=== PATIENT | male | born 1970 | race Caucasian/White ===

== ENCOUNTER 2025-04-22 09:44 | Emergency (ER) | payer OTHER, SELFPAY ==
[2025-04-22 09:47] VITALS: BP 158/86; PULSE 87; RESP 20; TEMP 36.3; O2SAT 98; BMI 27.2
--- NOTE | 2025-04-22 11:01 | ED.ALCOHOL ---
HPI - Alcohol General Chief Complaint: ETOH/Substance Use Stated Complaint: alcoholism Time Seen by Provider: 04/22/25 10:23 Source: patient, RN notes reviewed and old records reviewed Mode of arrival: ambulatory Limitations: no limitations History of Present Illness ED Provider: RICHARD Garcia HPI narrative: 54-year-old male with medical history of alcohol use disorder presents to the ED seeking ETOH detox. Patient states he has a long history of alcohol used that started when he was 19 years old, and has been consistently drinking daily since. Patient states he has had minimal periods of time of sobriety. Patient states he drinks approximately a handle of vodka weekly, however over the last 2 weeks has been drinking a handle of vodka every 3-4 days and the loss of his job has been emotionally taxing. He states he recently quit his job and finds himself with more free time to drink alcohol and is becoming very worried about the extent of his alcoholism. He reports drinkig 2 shots of vodka prior to arrival. Patient denies history of alcohol withdrawal or alcohol seizure, chest pain, SOB, abdominal pain, nausea, vomiting, headaches, visual changes, urinary symptoms Related Data Allergies Allergy/AdvReac Type Severity Reaction Status Date / Time No Known Allergies Allergy Verified 04/22/25 09:48 [facility] Social History Social History Smoked in Last 30 Days: No Use of substances other than those prescribed or required for medical reasons: No Advance Directives: No Advance Directives Information Provided: Yes Physical Exam ED Vital Signs: Vital Signs - 24 hr 04/22/25 09:47 Temperature 97.3 F Pulse Rate 87 Respiratory Rate 20 Blood Pressure 158/86 H Pulse Oximetry 98 Oxygen Delivery Method Room Air BMI result Body Mass Index 27.2 GENERAL APPEARANCE: ?AxOx4, generally well-appearing, no acute distress. HEENT: ?NC, AT. MMM. EOMI, clear conjunctiva, oropharynx clear. NECK: ?Supple without lymphadenopathy.? No stiffness or restricted ROM. HEART:? Normal rate and regular rhythm, normal S1/S1, no m/r/g LUNGS:? CTAB, moving air well. No crackles or wheezes are heard. ABDOMEN: ?Soft, nontender, nondistended with good bowel sounds heard. BACK: No CVAT, no obvious deformity. EXTREMITIES: ?Without cyanosis, clubbing or edema. NEUROLOGICAL: ?Grossly nonfocal. Alert and oriented, moving all 4 extremities. Observed to ambulate with normal gait. Skin: ?Warm and dry without any rash. Medical Decision Making Medical Decision Making MDM Narrative: Upon going back into the patients room he asked if [facility] [place] formal [place]. I told him to let us evaluate him as I wanted to obtain official CIWA score on him, lab work, and meeting with recovery team. He stated if the hospital did not have a formal detox he did not want to stay and wanted to self present at [facility] instead. I asked the patient to give me a moment so I could consult with a resource recovery specialist who could go over options available. A few moments later, nursing had asked if I discharged the patient as he had eloped from the department. Discharge Plan Discharge Clinical Impression: General medical exam Patient Disposition: Elopement Discharge Date/Time: 04/22/25 12:27 Print Language: Estonian
--- NOTE | 2025-04-22 12:01 | PC.NURSE ---
Pt noted by charger tester to be exiting department and leaving out the emergency department doors. Pt stopped and spoke with this RN, there is no detox program, they can't help me so I'm leaving. Anish PADILLA made aware. Pt A&Ox3, ambulatory with a steady gait.
--- OUTSIDE RECORDS SUMMARY | 2025-04-22 12:20 | XMS_ITS | Clinical Summary ---
Author Organization [facility] Address [address] [place] [address] Phone Care Team Providers Care Audiology Assistant Name Role Phone Jong Zhang MD Primary Care Provider [phone] Allergies No known active allergies Medications No known medications Active Problems No known active problems Surgical History Surgery Date Site/Laterality Comments NEPHRECTOMY PROCEDURE:NEPHRECTOMY Medical History Medical History Date Comments Alcohol abuse DX:Alcohol abuse Personal history of kidney cancer DX:Personal history of kidney cancer Family History Medical History Relation Name Comments Alcohol abuse Father No Known Problems Mother Relation Name Status Comments Father Mother Social History Tobacco Use Types Packs/Day Years Used Date Smoking Tobacco: Never Smokeless Tobacco: Never Alcohol Use Standard Drinks/Week Comments Yes 0 (1 standard drink = 0.6 oz pur e alcohol) Sex and Gender Information Value Date Recorded Sex Assigned at Not on file Legal Sex Male 1:10 PM EST Gender Identity Not on file Sexual Orientation Not on file Last Filed Vital Signs Vital Sign Reading Time Taken Comments Blood Pressure 113/73 12/09/2024 8:23 PM EDT Pulse 92 12/09/2024 8:23 PM EDT Temperature 36.8 C (98.2 F) 12/09/2024 8:23 PM EDT Respiratory Rate 20 12/09/2024 8:23 PM EDT Oxygen Saturation 93% 12/09/2024 8:23 PM EDT Inhaled Oxygen Concentration - - Weight 71.2 kg (157 lb) 12/09/2024 5:31 PM EDT Height 172.7 cm (5' 8 ) 12/09/2024 5:31 PM EDT Body Mass Index 23.87 12/09/2024 5:31 PM EDT Plan of Treatment Health Maintenance Due Date Last Done Comments Colorectal Cancer Screening: Colonoscopy 1968 Hepatitis A Vaccines (1 of 2 - Risk 2-dose series) 09/15/1987 Hepatitis B Vaccines (1 of 3 - 19+ 3-dose series) 09/15/1987 Pneumococcal Vaccine: 50+ Ye ars (1 of 2 - PCV) 09/15/1987 Zoster Vaccines (1 of 2) 2018 Cholesterol Screening (Lipid Panel) 03/21/2022 HIV Screening 03/21/2022 Hepatitis C Screening 03/21/2022 Social Influencers of Health Screening 03/21/2022 Depression Screening 04/23/2024 COVID-19 Vaccine (1 - 2024-2 6 season) 2024 Influenza Vaccine (#1) 2024 DTaP,Tdap,and Td Vaccines (2 - Td or Tdap) 06/29/2029 06/30/2019 RSV Immunization Adult Patie nts (1 - 1-dose 75+ series) 09/15/2043 HIB Vaccines Aged Out No longer eligi ble based on patient's age to complete this topic HPV Vaccines Aged Out No longer eligi ble based on patient's age to complete this topic IPV Vaccines Aged Out No longer eligi ble based on patient's age to complete this topic MMR Vaccines Aged Out No longer eligi ble based on patient's age to complete this topic Meningococcal ACWY Vaccine Aged Out N o longer eligible based on patient's age to complete this topic Meningococcal B Vaccine Aged Out No l onger eligible based on patient's age to complete this topic RSV Immunization Patients Un harvinder 20 months Aged Out No longer eligible b ased on patient's age to complete this topic Varicella Vaccines Aged Out No longer eligible based on patient's age to complete this topic Insurance [place] - [place] [facility] [address] [place] [address] Care Teams Audiology Assistant Relationship Specialty Start Date End Date Jong Zhang MD [address] [facility] [facility] [address] [place], [place] PCP - General Internal Medicine 03/28/20
--- OUTSIDE RECORDS SUMMARY | 2025-04-22 12:20 | XMS_ITS ---
Author Name [facility] Organization Unknown Results Test Name/Text Value Interpretation Date Range Source Lipase SerPl-cCnc 47.0 unit/L 12/09/2024 11 - 82 [facility] ALT SerPl-cCnc 26.0 unit/L 12/09/2024 7 - 52 [facility] Albumin SerPl-mCnc 4.7 g/dL 12/09/2024 3.5 - 5 [facility] Bilirub SerPl-mCnc 0.6 mg/dL 12/09/2024 0.3 - 1 [facility] BUN SerPl-mCnc 13.0 mg/dL 12/09/2024 9 - 20 [facility] Glucose SerPl-mCnc 121.0 mg/dL 12/09/2024 70 - 199 [facility] CO2 SerPl-sCnc 25.0 mmol/L 12/09/2024 24 - 32 [facility] AST SerPl-cCnc 23.0 unit/L 12/09/2024 5 - 40 [facility] ALP SerPl-cCnc 71.0 unit/L 12/09/2024 34 - 104 [facility] Prot SerPl-mCnc 7.3 g/dL 12/09/2024 6.4 - 8.5 [facility] Chloride SerPl-sCnc 102.0 mmol/L 12/09/2024 98 - 1 07 [facility] Calcium SerPl-mCnc 9.1 mg/dL 12/09/2024 8.4 - 10.2 [facility] BUN/Creat SerPl 12.3 12/09/2024 12 - 20 [facility] eGFRcr SerPlBld CKD-EPI 2020 82.0 mL/min/1.73m2 12/09/2024 - [facility] Potassium SerPl-sCnc 3.9 mmol/L 12/09/2024 3.5 - 5 [address]1 [facility] Creat SerPl-mCnc 1.06 mg/dL 12/09/2024 0.7 - 1.3 C [facility] Sodium SerPl-sCnc 138.0 mmol/L 12/09/2024 135 - 14 5 [facility] Anion Gap SerPl Calc-sCnc 11.0 12/09/2024 5 - 14 [facility] Magnesium SerPl-mCnc 2.1 mg/dL 12/09/2024 1.7 - 2. 8 [facility] Ethanol SerPl-mCnc 326.0 mg/dL Above high normal 12/09/2024 0 - 10 [facility] RBC # Bld Auto 5.16 M/mcL 12/09/2024 4.7 - 6 [facility] MCH RBC Qn Auto 32.0 pcg 12/09/2024 25 - 33 [facility] RBC Auto 89.9 FL 12/09/2024 78 - 100 [facility] Monocytes NFr Bld Auto 5.6 % 12/09/2024 2 - 12 [facility] Basophils # Bld Auto 0.19 K/mcL 12/09/2024 0 - 0.2 [facility] Lymphocytes NFr Bld Auto 14.9 % Below low normal 12/09/2024 20 - 48 [facility] MCHC RBC Auto-EntMCnc 35.6 g/dL 12/09/2024 32 - 36 [facility] Hct VFr Bld Auto 46.4 % 12/09/2024 40 - 54 [facility] Eosinophil NFr Bld Auto 5.5 % 12/09/2024 0 - 6 [facility] WBC # Bld Auto 12.1 K/mcL Above high normal 12/09/2024 4 - [address] [facility] Eosinophil # Bld Auto 0.66 K/mcL Above high normal 0 - 0.5 [facility] Hgb Bld-mCnc 16.5 g/dL 12/09/2024 13.5 - 18 [facility] Lymphocytes # Bld Auto 1.8 K/mcL 12/09/2024 1 - 3.2 [facility] Monocytes # Bld Auto 0.67 K/mcL 12/09/2024 0 - 0.8 [facility] Basophils NFr Bld Auto 1.6 % 12/09/2024 0 - 2 [facility] Neutrophils NFr Bld Auto 71.0 % 12/09/2024 44 - 74 [facility] Platelet # Bld Auto 355.0 K/mcL 12/09/2024 150 - 4 50 [facility] PMV Bld Auto 8.7 FL 12/09/2024 7.4 - 11.4 [facility] Neutrophils # Bld Auto 8.56 K/mcL Above high normal 12/09/2024 1.8 - 7.8 [facility] RDW RBC Auto 14.4 % 12/09/2024 12.1 - 17.7 [facility] History of Medication Use Medication Directions Dispensed Refills Start Date End Date Stat us LORazepam (ATIVAN) tablet 2 mg [Order 1 Start] Name: LORazepam (ATIVAN) tablet 2 mg Signed Summary: 2 mg, oral, Every 1 hour PRN, CIWA-Ar 10-18, Starting on Sun12/09/24 at 1747, Re-assess CIWA-Ar in 1 hour Hold dose and notify provider for BP LESS than 90/60, RR LESS than 10 per minute, marked somnolence, pooling of secretions, 12/09/2024 active thiamine (VITAMIN B-1) tablet 100 mg 100 mg, oral, Daily, First dose on Sun12/09/24 at 1749 12/09/2024 active No known medications No known medications active Encounters Encounter Type Encounter Reason Primary Diagnosis Location Date Emergency CRISIS Alcohol Problem [facility] Care Team Organization Name Specialty Phone Email Start Date End Da te [facility] Jong Zhang MD Primary Care 03/11/2025 [facility] Jong Zhang MD Primary Care 12/09/2024
--- OUTSIDE RECORDS SUMMARY | 2025-04-22 12:20 | XMS_ITS | Clinical Summary ---
Author Organization [facility] Prior to 09[facility]20[facility] [place] [id number] Care Team Providers Care Real Estate Administrative Assistant Name Role Phone Jong Zhang MD Primary Care Provider [phone] Allergies No known active allergies Medications Medication Sig Dispensed Refills Start Date End Date Status gabapentin (NEURONTIN) 100 MG capsuleIndications:A lcohol Use Disorder,Alcohol Withdrawal Syndrome,Social Anxiety Disorder Take 1 capsule (100 mg total) by mouth 3 (three) times a day. 45 capsule 1 04/01/2020 Active hydrOXYzine (VISTARIL) 50 MG capsuleIndications:A nxiety Take 1 capsule (50 mg total) by mouth 3 (three) times a day as needed for itching or anxiety. 15 capsule 1 04/01/2020 Active escitalopram (LEXAPRO) tablet 10 mgIndications:Genera lized Anxiety Disorder,Major Depressive Disorder Take 1.5 tablets (15 mg total) by mouth daily. 30 tablet 1 04/02/2020 Active mirtazapine (REMERON) 7.5 MG tabletIndications:Ma shireen Depressive Disorder,Panic Disorder Take 1 tablet (7.5 mg total) by mouth every night at bedtime. 15 tablet 1 04/01/2020 Active naltrexone (DEPADE) 50 MG tabletIndications:Al cohol Use Disorder Take 1 tablet (50 mg total) by mouth daily. 30 tablet 0 04/02/2020 Active folic acid (FOLVITE) tablet 1 mgIndications:supple ment Take 1 tablet (1 mg total) by mouth daily. 30 tablet 0 04/02/2020 Active vitamin B-1 100 MG tabletIndications:nuñze pplement Take 1 tablet (100 mg total) by mouth daily. 30 tablet 0 04/02/2020 Active Active Problems Problem Noted Date Diagnosed Date Alcohol use disorder, severe, dependence 020 MDD (major depressive disord er), recurrent severe, without psychosis 03/28/2020 Family History Medical History Relation Name Comments Alcohol abuse Father No Sig Med Hx Mother Relation Name Status Comments Father Mother Social History Tobacco Use Types Packs/Day Years Used Date Smoking Tobacco: Never Smokeless Tobacco: Never Tobacco Cessation:Counseling Given: No Alcohol Use Standard Drinks/Week Comments Yes 0 (1 standard drink = 0.6 oz pur e alcohol) 2-4 handles per day Sex and Gender Information Value Date Recorded Sex Assigned at Male 03/28/2020 1:31 PM EST Gender Identity Male 03/28/2020 2:11 PM EST Sexual Orientation Straight 03/28/2020 2: 11 PM EST Last Filed Vital Signs Vital Sign Reading Time Taken Comments Blood Pressure 117/80 04/01/2020 7:38 AM EST Pulse 88 04/01/2020 7:38 AM EST Temperature 36.2 C (97.1 F) 04/01/2020 7:34 AM EST Respiratory Rate 16 04/01/2020 7:38 AM EST Oxygen Saturation 98% 04/01/2020 7:34 AM EST Inhaled Oxygen Concentration - - Weight 77.1 kg (170 lb) 03/28/2020 2:00 PM EST Height 172.7 cm (5' 8 ) 03/28/2020 2:00 PM EST Body Mass Index 25.85 03/28/2020 2:00 PM EST Plan of Treatment Not on file Advance Directives For more information, please contact: [phone] Latest Code Status on File Code Status Date Activated Date Inactivated Comments Full Code 03/28/2020 2:37 PM 04/01/2020 6:16 PM This code status was ascertained in the following way: per unit protocol. Care Teams Real Estate Administrative Assistant Relationship Specialty Start Date End Date Jong Zhang MD [address] [facility] [address] [place] [address] PCP - General Internal Medicine 03/28/20
== END 2025-04-22 12:27 | disposition left against medical advice (07) ==
PROVIDERS: Emergency Provider Emergency Medicine Emergency Medical Services
DX: F10.10 Alcohol abuse, uncomplicated (principal)
CPT/HCPCS: 99284